=== PATIENT | female | born 1945 | race Caucasian/White ===

== ENCOUNTER → 2018-07-24 | Outpatient (CLI) | payer MEDICARE, OTHER ==
--- NOTE | 2018-07-27 11:35 | CT ---
Procedure: CT LUNG SCREENING Exam Date: 07/24/2018. Ordering Provider: FRANCOIS LEE Clinical Indication: PERSONAL HISTORY OF TOBACCO USE. Current smoker. 35 pack years. This patient meets eligibility criteria for low-dose CT lung cancer screening. Comparison: None. Technique: Using a multislice scanner, sequential helical axial imaging was obtained in the thorax, 2.5 mm thickness, 2.5 mm separation, from the level of the thoracic inlet through the lung bases without IV contrast. A low dose protocol was utilized for BMI less than 30: BMI: 24.7. CTDI: 1.75 mGy. 120. kVp. 45 mA. DLP 59.5 mGy centimeters. 2D sagittal and coronal reconstructed images, 6.0 mm thickness, were obtained. This exam was performed according to our departmental dose optimization program which includes use of automated exposure control, adjustment of the mA and/or kV according to patient size and/or use of iterative reconstruction technique. Nodule measurements under 10 mm are given as mean value of 3 axes diameters. FINDINGS: Lungs and large airways: 3 mm calcified nodule anterior superior segment right lower lobe on axial image 2/57. Groundglass subpleural 7 mm nodule versus focal pleural thickening posterior aspect of the superior segment of the right lower lobe on axial image 2/47. Occasional scattered blebs bilaterally. Mild bilateral peribronchial perihilar cuffing. Semisolid nodule at the base of the lingula lateral subpleural 4 mm on image 2/82. Pleura and space: Focal pleural thickening prominent in the bilateral apices and more on the left than the right. No pleural effusion or pneumothorax.. Mediastinum and linda: evaluation limited by low dose technique and lack of IV contrast. Calcifications most likely from old degenerated lymph nodes and aorticopulmonary space, azygous space, right hilar space and subcarinal space. No enlarged lymph nodes or dominant solid masses. Heart and great vessels: Minimal atherosclerotic calcification proximal brachiocephalic vessels and aortic arch. Chest wall, lower neck, axillae: Evaluation also limited by same factors as described above. No enlarged lymph nodes. Upper abdomen: No free fluid free air or stranding in the included peritoneal space. Normal size and density of the spleen and adrenal glands. Osseous structures: Evaluation limited by low dose MIP technique. Several levels of spondylosis in the thoracic spine. No lytic or blastic lesions. IMPRESSION: Groundglass subpleural 7 mm nodule versus focal pleural thickening superior segment right lower lobe. Semisolid 4 mm nodule at the base of the lingula lateral subpleural region. Mild scattered blebs bilateral upper lobes.. [facility] Best Practice guidelines for chest CT screening: Please see below for Lung RADS category and FOLLOW-UP.* *Lung RADS category CATEGORY 2- Nodules with a very low likelihood (less than 1%) of becoming a clinically active cancer due to size or lack of growth. Nodules: Solid or part solid nodule(s) less than 6mm, new solid nodule less than 4mm. Ground glass nodule(s) less than 20mm or unchanged or slow growing ground glass nodule 20mm or greater. Cat 3 or 4 nodule unchanged for 3 or more months. FOLLOW-UP: Continue annual screening with a Low Dose Chest CT in 12 months for re-evaluation. Electronically signed by: Jules Wiggins MD 07/27/2018 11:33 AM CDT
--- NOTE | 2018-07-29 17:04 | MAM ---
EXAM DESCRIPTION: 3D Screening BILATERAL : Digital Mammography. CLINICAL HISTORY: 73 years Female SCREENING . No complaints. No personal or family history of breast cancer. No childbirth. Postmenopausal 26 years. No HRT. Lifetime risk of developing breast cancer (Tyrer-Cuzick model)(%): 5.4. COMPARISON: Baseline study at this facility.. No prior reports available. TECHNIQUE: Bilateral CC and MLO projection full-field images, digital tomosynthesis mammographic technique. Bilateral digital 2-D full-field MLO images. CAD not available for tomosynthesis or 2-D images. FINDINGS: The breast parenchymal density pattern is: Scattered areas of fibroglandular density. No skin thickening or nipple retraction. Small mass density in the posterior third of the lower outer quadrant of the right breast at the 10:00 position with heterogeneous calcifications. 12 cm from the nipple. Tight group of large coarse benign type calcifications in the lower inner quadrant of the anterior third of the right breast. 3:00 position, 5 cm from the nipple. 1 cm slightly lobulated mass density at the 1:00 position of the anterior third of the left breast, approximately 5 cm from the nipple. Not associated with microcalcifications. Bilateral solitary microcalcifications. IMPRESSION: BI-RADS CATEGORY: 0 - INCOMPLETE- Need additional imaging evaluation. FOLLOW-UP: Recall for additional imaging: Bilateral diagnostic full field orthogonal tomosynthesis of the breasts. Targeted bilateral breast ultrasound of the regions of interest.. Written communication concerning the IMPRESSION and Follow-up, will be mailed to the patient and referring health care provider. Electronically signed by: Jules Wiggins MD 07/29/2018 5:01 PM CDT
== END ==
LOC: CT 10:30
PROVIDERS: ATTEND Emergency Medicine
DX: Z12.31 Encounter for screening mammogram for malignant neoplasm of breast (principal); N60.39 Fibrosclerosis of unspecified breast; R91.8 Other nonspecific abnormal finding of lung field; Z87.891 Personal history of nicotine dependence
CPT/HCPCS: 77063; 77067; G0297